=== PATIENT | female | born 1945 | race Caucasian/White ===

== ENCOUNTER 2017-06-29 10:40 | Inpatient (IN) ==
[2017-06-24 13:13] LABS: Appearance,Urine HAZY; Bacteria,Urine 0 /hpf (0); Bilirubin,Urine NEG (NEG); Color,Urine YELLOW; Glucose,Urine (UA) NEGATIVE (NEG); Leukocyte Esterase,Urine 25 /uL (NEG); Mucus,Urine MANY /hpf (0); Protein,Urine NEG (NEG); Specific Gravity,Urine 1.026 (1.000-1.035); Urine Blood NEG mg/dL (<0.03); Urine Hyaline Cast 4 /lpf (0-2); Urine RBC 1 /hpf (0-1); Urine Squamous Epithelial Cell 11 /hpf (0-4); Urine WBC 3 /hpf (0-4)
[2017-06-24 15:40] LABS: Basophils # (Auto) 0 K/mcL (0.0-0.3); Basophils % (Auto) 0.4 % (0.0-2.0); Eosinophils # (Auto) 0.2 K/mcL (0.0-0.7); Granulocytes % (Auto) 52.2 % (38.0-78.0); Lymphocytes # (Auto) 2.4 K/mcL (1.5-4.8); Lymphocytes % (Auto) 36.6 % (15.5-49.0); Mean Cell Volume 92.4 fL (80.0-100.0); Mean Corpuscular HGB Conc 32.8 g/dL (31.0-36.0); Mean Corpuscular Hemoglobin 30.3 pg (26.0-34.0); Monocytes # (Auto) 0.5 K/mcL (0.1-0.9); Monocytes % (Auto) 7.8 % (1.0-12.0); Platelet Count 265 K/mcL (140-440); RBC 4.26 M/mcL (4.00-5.20); Red Cell Distribution Width 12.6 % (11.5-14.5)
[2017-06-24 15:45] LABS: Blood Urea Nitrogen 15 mg/dl (8-23)
[~2017-06-29 10:40] MED LIST: ACETAMINOPHEN 500 MG TABLET PO SCH; CELECOXIB 200 MG CAPSULE PO SCH; IPRATROPIUM/ALBUTEROL 3 ML AMPUL.NEB NEB PRN; KETOROLAC 30 MG, ROPIVACAINE HCL/PF 49.5 ML, EPINEPHrine 0.5 MG, 0.9 % SODIUM CHLORIDE ... IJ SCH; PREGABALIN 75 MG CAPSULE PO SCH; SCOPOLAMINE 1 PATCH PATCH TOPICAL PRN; ceFAZolin 1 GM VIAL IV SCH; oxyCODONE 10 MG TAB.ER.12H PO SCH
[2017-06-29] MEDS ORDERED: IPRATROPIUM/ALBUTEROL 3 ML AMPUL.NEB NEB ONE (13:00)
[2017-06-29] MEDS ORDERED: PHENYLEPHRINE 10 MG/ML VIAL IV ONE (13:35)
[2017-06-29] MEDS ORDERED: KETAMINE 100 MG/ML ML IV ONE (13:35)
[2017-06-29] MEDS ORDERED: PROPOFOL 200 MG/20 ML VIAL IV ONE (13:35)
[2017-06-29] MEDS ORDERED: TRANEXAMIC ACID 1,000 MG/10 ML VIAL IV ONE ×2 (13:35→14:48)
[2017-06-29] MEDS ORDERED: DEXAMETHASONE 10 MG/ML VIAL IV ONE (13:35)
[2017-06-29] MEDS ORDERED: ONDANSETRON 4 MG/2 ML VIAL IV ONE (13:35)
[2017-06-29] MEDS ORDERED: MIDAZOLAM 5 MG/5 ML VIAL IV ONE (13:35)
[2017-06-29] MEDS ORDERED: fentaNYL 100 MCG/2 ML VIAL IV ONE (13:35)
[2017-06-29] MEDS ORDERED: ROPIVACAINE HCL/PF 20 ML VIAL IJ ONE (13:35)
[2017-06-29] MEDS ORDERED: GENTAMICIN SULFATE 800 MG/20 ML VIAL IR ONE (14:12)
[2017-06-29] MEDS ORDERED: ACETAMINOPHEN 325 MG TABLET PO PRN (14:48)
[2017-06-29] MEDS ORDERED: BENZOCAINE/MENTHOL 1 LOZENGE PO PRN ×2 (14:48→15:22)
[2017-06-29] MEDS ORDERED: TEMAZEPAM 15 MG CAPSULE PO PRN (14:48)
[2017-06-29] MEDS ORDERED: FLEETS ADULT ENEMA PR PRN (14:48)
[2017-06-29] MEDS ORDERED: MAGNESIUM HYDROXIDE 30 ML ORAL.SUSP PO PRN (14:48)
[2017-06-29] MEDS ORDERED: BISACODYL 10 MG SUPP.RECT PR PRN (14:48)
[2017-06-29] MEDS ORDERED: POLYETHYLENE GLYCOL 3350 17 GM PACKET PO PRN (14:48)
[2017-06-29] MEDS ORDERED: HYDROcodone/APAP 10/325MG TABLET PO PRN (14:52)
[2017-06-29] MEDS ORDERED: ALBUTEROL SULFATE 1 PUFF INHALER INH PRN (14:52)
--- NOTE | 2017-06-29 14:55 | Brief Operative Note ---
Date of procedure: 06/29/17 Pre-op diagnosis: right knee djd Post-op diagnosis: same Procedure: right tka with robot Grafts/Implants: Yes Anesthesia: FLOR Surgeon: Pardeep Davies Pony Edger: Hunter Smith Estimated blood loss (cc): 30 Tourniquet Time (Minutes): 45 Specimens Removed/Pathology: none sent Condition: stable Disposition: PACU
[2017-06-29] MEDS ORDERED: METHOCARBAMOL 1,000 MG/10 ML VIAL IV PRN (15:22)
[2017-06-29] MEDS ORDERED: fentaNYL 100 MCG/2 ML VIAL IV PRN (15:22)
[2017-06-29] MEDS ORDERED: FLUMAZENIL 0.1 MG/ML ML IV PRN (15:22)
[2017-06-29] MEDS ORDERED: LACTATED RINGERS 250 ML IV PRN (15:22)
[2017-06-29] MEDS ORDERED: MEPERIDINE 25 MG/ML SYRINGE IV PRN (15:22)
[2017-06-29] MEDS ORDERED: IPRATROPIUM/ALBUTEROL 3 ML AMPUL.NEB NEB PRN (15:22)
[2017-06-29] MEDS ORDERED: NALOXONE HCL 0.4 MG/ML VIAL IV PRN (15:22)
[2017-06-29] MEDS ORDERED: PROMETHAZINE 25 MG/ML VIAL IV PRN (15:22)
[2017-06-29] MEDS ORDERED: LACTATED RINGERS 1,000 ML IV SCH (15:30)
--- NOTE | 2017-06-29 16:01 | Operative Note ---
DATE OF OPERATION: 06/29/2017 PREOPERATIVE DIAGNOSIS: Right knee degenerative arthritis, severe. POSTOPERATIVE DIAGNOSIS: Right knee degenerative arthritis, severe. PROCEDURE: Right total knee arthroplasty using the [employer] robot. SURGEON: Pardeep Davies M.D. PEANUT SEPARATOR: Hunter Smith PA-C. ANESTHESIA: General LMA anesthesia. COMPLICATIONS: None. TOTAL TOURNIQUET TIME: Approximately 45 minutes. DESCRIPTION OF PROCEDURE: The patient was brought to the operating room and put to sleep with general LMA anesthesia. Once asleep, the patient had the right leg sterilely prepped and draped in the usual sterile fashion after confirming this as the operative site. Once this had been done, we then made a midline incision, midvastus approach. We saw that there was severe arthritis in two of the three compartments. We proceeded with a right total knee. We put two pins above and below the knee, and these were then used to register the center of hip rotation and medial and lateral malleolus. Thirty points on the femur and tibia were registered, as well as balance the knee both at 90 degrees and 15 degrees. Once the components had been balanced for 19 mm gaps and perfectly aligned, we then took the patient to flexion and exposed the joint and subluxed the patella laterally. We then brought the robot in, registered the robot and then made the tibial cut and then the femoral component cuts with the robot. We then changed the blade and made the distal femoral cut. These bony fragments were removed, and the remnants of the meniscus and posterior osteophytes were removed. We then injected the posterior capsule with a post-inject formula. We then tapped into place the components, size 5 tibial component, size 5 femoral. This seemed to fit very nicely. The patella tracked well with an 11 mm poly, achieving 1 degree extension. Once done and we balanced the knee, we then prepared the patella measuring 24 mm in total thickness. This was cut to 14 mm and a 36 mm patellar button was placed. We then cemented into place the above-mentioned sizes. Excess cement was removed. We kept it at 45 degrees until all components were dry. We then took the knee through range of motion. All components tracked well. A small chamfer cut on the patella was made to make sure there was no impingement of the bone on the lateral femoral condyle. Once done, we then irrigated thoroughly, deflated the tourniquet at 45 minutes and then closed the midvastus approach with #1 Stratafix x2 sutures. The other portals were closed without complication. A sterile bandage applied. Adhesive closure on the skin was placed. [email or web address] Job ID: [id number] Doc ID: [id number] Pardeep Davies MD
--- NOTE | 2017-06-29 16:15 | XRay Report ---
HISTORY: Reason for Exam:Post-Op Total Knee FINDINGS: There is a well-positioned right total knee prosthesis. No fracture is present. There is a large amount gas around the joint due to the surgical procedure. IMPRESSION: Well-positioned right knee prosthesis Interpreted and Authenticated by: Peter Raymond 06/29/17
[2017-06-29] MEDS: 0.45 % SODIUM CHLORIDE 1,000 ML IV SCH (18:00)
[2017-06-29] MEDS: KETOROLAC 15 MG/ML VIAL IV SCH (18:00)
[2017-06-29] MEDS: HYDROcodone/APAP 10/325MG TABLET PO PRN (19:24)
[2017-06-29] MEDS: ATORVASTATIN 20 MG TABLET PO SCH (20:18)
[2017-06-29] MEDS: QUEtiapine 100 MG TABLET PO SCH (20:18)
[2017-06-29] MEDS: SENNOSIDES 1 TABLET PO SCH (20:18)
[2017-06-29] MEDS: buPROPion 100 MG TAB.SR.12H PO SCH (20:18)
[2017-06-29] MEDS: DOCUSATE SODIUM 100 MG CAPSULE PO SCH (20:19)
[2017-06-29] MEDS: ASPIRIN 325 MG ENTERIC COATED TABLET PO SCH (20:19)
[2017-06-29] MEDS: 0.9 % SODIUM CHLORIDE 10 ML SYRINGE IV SCH (20:20)
[2017-06-29] MEDS: FLUTICASONE PROPIONATE SPRAY.NAS NS SCH ×2 (20:20→20:24)
[2017-06-29] MEDS: ceFAZolin 1 GM VIAL IV SCH (21:04)
[2017-06-29] MEDS: HYDROmorphone 2 MG/ML VIAL IV PRN (22:52)
[2017-06-30] MEDS: KETOROLAC 15 MG/ML VIAL IV SCH ×4 (00:06→17:53)
[2017-06-30] MEDS: 0.45 % SODIUM CHLORIDE 1,000 ML IV SCH ×3 (03:09→17:53)
[2017-06-30] MEDS: ONDANSETRON 4 MG/2 ML VIAL IV PRN ×2 (03:33→11:44)
[2017-06-30] MEDS: HYDROmorphone 2 MG/ML VIAL IV PRN (04:23)
[2017-06-30] MEDS: 0.9 % SODIUM CHLORIDE 10 ML SYRINGE IV SCH ×3 (04:24→20:20)
[2017-06-30] MEDS: ceFAZolin 1 GM VIAL IV SCH (04:24)
[2017-06-30] MEDS: HYDROcodone/APAP 10/325MG TABLET PO PRN ×6 (05:55→23:35)
[2017-06-30] MEDS: LEVOTHYROXINE 75 MCG TABLET PO SCH (07:18)
[2017-06-30] MEDS: OMEPRAZOLE 20 MG CAPSULE PO SCH (07:18)
--- NOTE | 2017-06-30 07:51 | Orthopedic Progress Note ---
Subjective Patient information: Note initiated : 06/30/17 at 7:50 am Service Date, if different from initiated Date: [] Patient: Sola Waterman 71 y/o F admitted on 06/29/17 for Right Total Arthroplasty Knee - Rohith. Chief Complaint: [] Pt is stable this morning on post operative day 1 without any significant concerns or complaints. Patients vital signs have remained stable. Patients dressing is dry and is grossly instact from a neurovascular and motor standpoint. Patients 10 point ROS is otherwise negative. Objective Vital signs: Vital Signs Temp Pulse Resp BP Pulse Ox 06/30/17 07:37 97.6 F 77 12 93/56 98 06/30/17 03:15 98.3 F 87 12 117/69 95 06/29/17 23:16 97.4 F 89 16 121/56 95 06/29/17 23:15 95 06/29/17 20:00 97.8 F 88 16 158/65 94 06/29/17 18:48 94 06/29/17 17:30 116/74 94 06/29/17 17:15 126/80 95 06/29/17 17:00 132/79 96 06/29/17 16:45 141/81 94 06/29/17 16:30 129/79 96 06/29/17 16:15 128/69 97 06/29/17 15:41 97.6 F 79 15 144/60 98 06/29/17 15:36 80 13 145/63 98 06/29/17 15:31 82 12 151/56 96 06/29/17 15:26 83 12 148/60 97 06/29/17 15:21 79 12 148/80 100 06/29/17 15:16 82 13 150/64 100 06/29/17 15:11 97.2 F 83 10 L 148/70 100 Intake and Output 06/29/17 06/30/17 06/30/17 21:59 05:59 13:59 Intake Total 3200 / 3200 1265 / 1265 Output Total 1200 / 1200 400 / 400 100 / 100 Balance 1999 865 / 865 -100 / -100 Intake: IV 3200 / 3200 915 / 915 Sodium Chloride 0.45% 1,000 ml 915 / 915 @ 100 mls/hr IV .Q10H [facility] Rx#: [id number] Oral 350 / 350 Output: Urine Catheter Amount 1200 / 1200 Straight 600 / 600 Void Amount 225 / 225 100 / 100 Emesis 175 / 175 Other: Stool Size Moderate Small Stool Color Brown Brown Stool Consistency Formed Soft Loose # Bowel Movements 1 1 Weight 277 lb 9.6 oz Intake & Output: Intake & Output 06/29/17 06/30/17 06/30/17 21:59 05:59 13:59 Intake Total 3200 / 3200 1265 / 1265 Output Total 1200 / 1200 400 / 400 100 / 100 Balance 1999 865 / 865 -100 / -100 Weight 277 lb 9.6 oz Intake: IV 3200 / 3200 915 / 915 Sodium Chloride 0.45% 1,000 ml 915 / 915 @ 100 mls/hr IV .Q10H [facility] Rx#: [id number] Oral 350 / 350 Output: Urine Catheter Amount 1200 / 1200 Straight 600 / 600 Void Amount 225 / 225 100 / 100 Emesis 175 / 175 Other: Stool Size Moderate Small Stool Color Brown Brown Stool Consistency Formed Soft Loose # Bowel Movements 1 1 Incision: Yes healing Incision clean and dry: Yes Dressing: Yes clean Weight bearing status: full Neurological exam IM: Yes reflexes normal, Yes motor sensory intact, Yes neurovascular intact Extremities exam IM: Yes Foot pink and warm, Yes neurovascular intact - Labs CBC & BMP: 06/30/17 04:15 06/24/17 11:39 Labs: Orthopedic Labs 06/24/17 11:39 PT 13.1 INR 1.0 APTT 29 06/30/17 06/24/17 04:15 11:40 Hgb 12.9 Hct 36.8 39.4 Assessment and Plan (1) Hx of total knee arthroplasty The patient has been educated regarding dressing care, Physical Therapy recommendations, home exercises, restrictions, and follow up appointments. The patient has had all necessary DME prescribed. The patient has remained relatively stable during their hospital course. I consulted with Dr Davies regarding her O2 concerns as well as if he wants a Hospitalist Consult for her. Status: Acute
--- NOTE | 2017-06-30 07:54 | Discharge Summary ---
Ortho Discharge - TKA - Patient Instructions Diet: Regular Diet Total Knee Protocol: For Total Knee: Start ROM BLANK with stationary bike or rocking chair. Work on gaining full extension of knee. Posterior dislocation precautions provided. Hip abductor strengthening and gait training instructions provided. Apply Cryocuff as instructed. Dressing Care: May shower in 2 days, Aquacel Ag - leave on for 5 days Additional Instructions: Would like to discuss Home health - Problem Maintenance (1) Hx of total knee arthroplasty Status: Acute - Follow Up Plan Follow Up Appointments: Pardeep Davies MD [Physician] - 07/14/17 11:20 am Disposition: Home Health Service Prognosis: Good Rehab Potential: Good I certify that the patient requires SNF services: No - Orders For Discharge Prescriptions: Aspirin [Ecotrin] 325 mg PO BID #60 tab.ec Docusate Sodium [Colace] 100 mg PO BID #60 capsule HYDROcodone/APAP 10/325MG [[place] 10-325Mg] 1 - 2 tab PO Q4HP PRN #75 tablet PRN Reason: Pain Level 3-6
[2017-06-30] MEDS: ASPIRIN 325 MG ENTERIC COATED TABLET PO SCH ×2 (08:56→20:18)
[2017-06-30] MEDS: DOCUSATE SODIUM 100 MG CAPSULE PO SCH ×2 (08:56→20:19)
[2017-06-30] MEDS: LISINOPRIL 20 MG TABLET PO SCH (08:56)
[2017-06-30] MEDS: buPROPion 100 MG TAB.SR.12H PO SCH ×2 (08:56→20:17)
[2017-06-30] MEDS: FLUTICASONE PROPIONATE SPRAY.NAS NS SCH ×2 (10:25→20:27)
[2017-06-30] MEDS: QUEtiapine 100 MG TABLET PO SCH (20:17)
[2017-06-30] MEDS: ATORVASTATIN 20 MG TABLET PO SCH (20:18)
[2017-06-30] MEDS: SENNOSIDES 1 TABLET PO SCH (20:19)
[2017-07-01] MEDS: KETOROLAC 15 MG/ML VIAL IV SCH ×3 (00:08→10:59)
[2017-07-01] MEDS: 0.45 % SODIUM CHLORIDE 1,000 ML IV SCH ×2 (03:18→07:50)
[2017-07-01] MEDS: HYDROcodone/APAP 10/325MG TABLET PO PRN (04:32)
[2017-07-01] MEDS: 0.9 % SODIUM CHLORIDE 10 ML SYRINGE IV SCH (06:02)
--- NOTE | 2017-07-01 07:20 | Orthopedic Progress Note ---
Subjective Patient information: Note initiated : 07/01/17 at 7:19 am Service Date, if different from initiated Date: [] Patient: Sola Waterman 71 y/o F admitted on 06/29/17 for Right Total Arthroplasty Knee - Rohith. Chief Complaint: [minimal pain and doing well] Objective Vital signs: Vital Signs Temp Pulse Resp BP Pulse Ox 07/01/17 03:02 98 07/01/17 03:01 98.1 F 77 14 131/62 98 06/30/17 23:35 97.9 F 76 12 111/65 92 06/30/17 20:00 97.9 F 75 14 135/62 97 06/30/17 16:00 98.6 F 76 14 105/62 95 06/30/17 12:00 97.5 F 75 12 99/59 97 06/30/17 07:37 97.6 F 77 12 93/56 98 Intake and Output 06/30/17 07/01/17 07/01/17 21:59 05:59 13:59 Intake Total 600 / 600 1392 / 1392 Output Total 150 / 150 825 / 825 Balance 450 / 450 567 / 567 Intake: IV 942 / 942 Sodium Chloride 0.45% 1,000 ml 942 / 942 @ 100 mls/hr IV .Q10H [facility] Rx#: [id number] Oral 600 / 600 450 / 450 Output: Void Amount 150 / 150 825 / 825 Other: # Voids 1 Weight 267 lb 4.8 oz Intake & Output: Intake & Output 06/30/17 07/01/17 07/01/17 21:59 05:59 13:59 Intake Total 600 / 600 1392 / 1392 Output Total 150 / 150 825 / 825 Balance 450 / 450 567 / 567 Weight 267 lb 4.8 oz Intake: IV 942 / 942 Sodium Chloride 0.45% 1,000 ml 942 / 942 @ 100 mls/hr IV .Q10H [facility] Rx#: [id number] Oral 600 / 600 450 / 450 Output: Void Amount 150 / 150 825 / 825 Other: # Voids 1 Incision: Yes healing Incision clean and dry: No Dressing: Yes clean Weight bearing status: full Neurological exam IM: Yes oriented X3, Yes neurovascular intact Extremities exam IM: Yes Foot pink and warm (dc home), Yes neurovascular intact - Labs CBC & BMP: 06/30/17 04:15 06/24/17 11:39 Labs: Orthopedic Labs 06/24/17 11:39 PT 13.1 INR 1.0 APTT 29 06/30/17 06/24/17 04:15 11:40 Hgb 12.9 Hct 36.8 39.4
[2017-07-01] MEDS: LEVOTHYROXINE 75 MCG TABLET PO SCH (07:22)
[2017-07-01] MEDS: OMEPRAZOLE 20 MG CAPSULE PO SCH (07:22)
[2017-07-01] MEDS: buPROPion 100 MG TAB.SR.12H PO SCH (09:07)
[2017-07-01] MEDS: FLUTICASONE PROPIONATE SPRAY.NAS NS SCH (09:08)
[2017-07-01] MEDS: DOCUSATE SODIUM 100 MG CAPSULE PO SCH (09:08)
[2017-07-01] MEDS: ASPIRIN 325 MG ENTERIC COATED TABLET PO SCH (09:08)
[2017-07-01] MEDS: LISINOPRIL 20 MG TABLET PO SCH ×2 (09:08→09:40)
[2017-07-02] MEDS ORDERED: ERGOCALCIFEROL (VITAMIN D2) 50,000 UNIT CAPSULE PO SCH (09:00)
== END 2017-07-01 11:09 | disposition home health service (06) | DRG 470 ==
LOC: MEDSUR 10:40
PROVIDERS: ADMIT Orthopaedic Surgery; ATTEND Orthopaedic Surgery